=== PATIENT | male | born 1950 | race Caucasian/White ===

== ENCOUNTER → 2016-11-11 | Outpatient (CLI) | payer OTHER ==
[~2016-11-11] MED LIST: ADVAIR 250-501 EACH INH; ADVAIRDISKUS; ADVIL MIGRAINE200 MG PO; ALLOPURINOL; ALLOPURINOL 10100 M1 PO; ALTACE10 MG PO; ASPIRIN EC81 M1 PO; AVELOX400 MG PO; BACTRIM DS TAB1 EACH PO; BYSTOLIC 5 MG5 M1 PO; CELEBREX; CELEBREX 200 M200 M1 PO; CIPROFLOXACIN500 M1 PO; CLOPIDOGREL; CYMBALTA; CYMBALTA30 MG PO; DIABETA; DOXYCYCLINE 10100 MG PO; FLOMAX PO; FLOMAX0.4 MG PO; GLUCOPHAGE; GLUCOPHAGE XR500 M1 PO; GLUMETZA500 PO; IBUPROFEN 800800 M1 PO; INVOKANA100 MG; JANUVIA100 MG PO; LANTUS; LOPRESSOR; LYRICA 50 MG50 MG; MEDROLDOSEPACK PO; METOPROLOL TAR100 MG PO; NEXIUM; NEXIUM40 MG PO; ONDANSETRON HCL4 M3; PLAVIX 75 MG TA75 MG PO; PREDNISONE 20 M20 MG PO; PROAIR HFA8.5 GM INH; PROVENTIL IH; TAGAMETTAB PO; TOPROL XL50 MG PO; ULORIC40 MG; VENTOLIN HFA INH8 GM IH; VESICARE 5 MG TA5 MG; VYTORIN; VYTORIN 10-401 EACH PO; ZOFRAN ODT4 MG PO; [UNRECOGNIZED DRUG - REMARK]
== END ==
LOC: HYPER 06:53
DX: E11.621 Type 2 diabetes mellitus with foot ulcer (principal); L97.521 Non-pressure chronic ulcer of other part of left foot limited to breakdown of skin; J45.909 Unspecified asthma, uncomplicated; I10 Essential (primary) hypertension

== ENCOUNTER → 2016-12-02 | Outpatient (CLI) | payer OTHER | LOC: HYPER 07:11 | DX: E11.621 Type 2 diabetes mellitus with foot ulcer (principal); L97.521 Non-pressure chronic ulcer of other part of left foot limited to breakdown of skin; J45.909 Unspecified asthma, uncomplicated; I10 Essential (primary) hypertension; R60.9 Edema, unspecified ==

== ENCOUNTER → 2016-12-22 | Outpatient (CLI) | payer OTHER | LOC: HYPER 07:19 | DX: E11.621 Type 2 diabetes mellitus with foot ulcer (principal); L97.521 Non-pressure chronic ulcer of other part of left foot limited to breakdown of skin; J45.909 Unspecified asthma, uncomplicated; I10 Essential (primary) hypertension ==

== ENCOUNTER → 2017-03-16 | Outpatient (CLI) | payer OTHER | LOC: HYPER 01-19 06:51 | DX: E11.621 Type 2 diabetes mellitus with foot ulcer (principal); L97.521 Non-pressure chronic ulcer of other part of left foot limited to breakdown of skin; J45.909 Unspecified asthma, uncomplicated; I10 Essential (primary) hypertension ==

== ENCOUNTER → 2017-08-25 | Outpatient (CLI) | payer OTHER | LOC: HYPER 03-31 13:45 | DX: E11.621 Type 2 diabetes mellitus with foot ulcer (principal); L97.521 Non-pressure chronic ulcer of other part of left foot limited to breakdown of skin; L89.893 Pressure ulcer of other site, stage 3; I10 Essential (primary) hypertension; J45.909 Unspecified asthma, uncomplicated ==

== ENCOUNTER → 2017-10-12 | Outpatient (CLI) | payer OTHER | LOC: HYPER 09-09 07:08 | DX: E11.621 Type 2 diabetes mellitus with foot ulcer (principal); L97.522 Non-pressure chronic ulcer of other part of left foot with fat layer exposed; E11.40 Type 2 diabetes mellitus with diabetic neuropathy, unspecified; I10 Essential (primary) hypertension; J45.909 Unspecified asthma, uncomplicated ==